=== PATIENT | female | born 1945 | race Native Hawaiian/Other Pacific Islander ===

== ENCOUNTER 2019-09-28 11:12 | Inpatient (IN) | payer OTHER, MEDICARE ==
[~2019-09-28] VITALS: Ht 170.2 cm; Wt 70.8 kg
--- NOTE | 2019-09-28 09:00 | NUR ---
ASSISTED P[T TO RESTROOM, HELD TO HELP STEADY PT, U/A COLLECTED AND SENT TO LAB. PT ASSISTED BACK TO BED.
--- NOTE | 2019-09-28 11:00 | NUR ---
RESTING QUIETLY IN BED AT THIS TIME, NAD NOTED, RESP EVEN AND UNLABORED.
[2019-09-28 14:53] LABS: PLATELET COUNT 211 K/uL (152-353)
--- NOTE | 2019-09-28 15:09 | NUR ---
Patient is a new Swing Bed Patient and was admitted by Dr. Bentley with weakness and no diet order and labs WBC, MCV, MCH all elevated and RBC depressed and other labs pending. 67" at 161.2 and is a 74 YOF. IBW for height = 135+/-10% (121 to 149 lbs.) and kcal x 25 = 1500, x 30 = 1800, x 35 = 2148, x 40 = 2455, protein needs x .8 to 1.5 = 49 to 92 grams and fluids for weight x 25 or 30 = 1800 to 2200 ml per day. BMI at 25.2 overweight. 119% IBW. Will meet with the PCP team for the Swing Beds.
[2019-09-28 15:19] LABS: POTASSIUM 3.5 mmol/L (3.6-5.2)
--- NOTE | 2019-09-28 16:00 | NUR ---
PATIENT NOTED WITH A SMALL RASH ON THE LEFT SIDE OF THE UPPER BUTTOCKS, NO PUSTULES, DRAINAGE OR FOUL ODOR NOTED. PATIENT DENIED ANY PAIN OR ITCHING IN THAT AREA.
--- NOTE | 2019-09-28 16:30 | NUR ---
Mrs. Salazar is a 74 year old white female admitted to the facility on 09-28-19 for short term therapy, Mrs. Salazar was admitted from [facility] she was transported by personal vehicle to this facility. Patient is found to have generalized weakness with gait imbalance, lightheadedness, headaches and new onset tremors. Mrs. Salazar requires 24-hour alf care, which as a practical matter can only be done on a inpatient basis because she lives alone and requires help with all adl's and none of her children are able to provide that care for her at this time. Aerodynamicist and discharge planners will continue to observe and assist with any medically related psychosocial needs prn, observe and assist with an
--- NOTE | 2019-09-28 19:30 | NUR ---
PT STATED ,"I'M HUNGRY" SNACKS PROVIDED AT BEDSIDE AT THIS TIME,PT A& O ,NAD NOTED, RESP EVEN AND UNLABORED,DRINKS OPENED PER STAFF AND SOUP AND SANDWICHES SET UP FOR PT.
[2019-09-28 20:00] VITALS: BP 139/52; TEMP 98.4
[2019-09-28 20:08] VITALS: BP 140/54; TEMP 98.1; Ht 170.2 cm; Wt 70.8 kg
--- NOTE | 2019-09-29 01:00 | NUR ---
RESTING QUEITLY IN BED, NAD NOTED, RESP EVEN AND UNLABORED AT THIS TIME.
--- NOTE | 2019-09-29 03:26 | NUR ---
ASSISTED PT UP OUT OF BED TO BATHROOM AND RETURNED TO BED AT THIS TIME ,NAD NOTED, RESP EVEN AND UNLABORED.
--- NOTE | 2019-09-29 05:03 | NUR ---
PT RESTING IN BED,NO C/O VOICED, NAD NOTED, RESP EVEN AND UNLABORED AT PRESENT.
[2019-09-29 08:00] VITALS: BP 148/56; TEMP 97.6
[2019-09-29 20:09] VITALS: BP 126/47; TEMP 98.7
[2019-09-30 08:00] VITALS: BP 132/54; TEMP 98.3
--- NOTE | 2019-09-30 16:00 | NUR ---
SIMA assmt. completed on Martin.
[2019-09-30 20:00] VITALS: BP 123/45; TEMP 98.8
[2019-10-01 08:00] VITALS: BP 130/43; TEMP 97.9
--- NOTE | 2019-10-01 08:15 | NUR ---
ON ROUNDING PATIENT NOTED IN THE BATHROOM IN HER WALKER. PATIENT WAS COUGHING UP SOMETHING AND SPITTING IT IN THE TRASH. PATIENT STATED SHE HAD A LITTLE CONGESTION. PATIENT THEN AMBULATED WITH WALKER OUT OF THE BATHROOM TO THE BED ON HER OWN WITHOUT ASSISTANCE. VITAL SIGNS TAKEN AT THIS TIME. 0920-PATIENT TAKEN TO PT AT THIS TIME. PATIENT USES THE WALKER TO AMBULATE. PATIENT RETURNED AROUND 0940. 1015- PATIENT TAKEN FOR MUSIC ACTIVITY AT THE [facility].
[2019-10-01 20:00] VITALS: BP 118/41; TEMP 98.5
--- NOTE | 2019-10-02 06:17 | NUR ---
10/02/2019 0620 RESTING HF NO C/O DURING THE NIGHT.CALL LIGHT WITHIN REACH.CC
[2019-10-02 08:00] VITALS: BP 133/39; TEMP 97.3
--- NOTE | 2019-10-02 11:25 | NUR ---
PER ORDER PATIENT TAKEN OFF O2 AT THIS TIME AND INSTRUCTED TO REMAIN OFF HER OXYGEN IN ATTEMPT TO WEAN OF O2 AT 2PM. PATIENT EDUCATED THAT IF SHE FELT SHORT OF BREATH TO CALL NURSES STATION FOR ASSISTANCE IMMEDIATELY PATIENT VOICED UNDERSTANDING. CURRENT SPO2 96%.
[2019-10-02 20:00] VITALS: BP 104/40; TEMP 97.2
[2019-10-03 08:00] VITALS: BP 100/61; BP 118/38; TEMP 98.5
--- NOTE | 2019-10-03 15:00 | NUR ---
WHILE HER DAUGHTER WAS VISITING PATIENT GOT IN THE SHOWER. PATIENT ABLE TO STAND UP FROM BEDSIDE CHAIR AND USE WALKER TO AMBULATE TO THE SHOWER. PATIENT IS ABLE TO SIT IN THE CHAIR AND WASH HERSELF WITHOUT ASSITANCE. PATIENT NOTED STANDING WITH WALKER BY HER SIDE AND SHE WAS DRYING OFF WITH TOWEL. PATIENT AMBULATED WITHOUT CLOTHES TO HER BEDSIDE CHAIR AND SHE SAT DOWN AND PUT HER UNDERWEAR ON AND THEN STOOD UP AND ADJUSTED THEM ON HER HIPS. PATIENT THEN REACHED FOR HER CLEAN PAJAMAS ON THE BED AND DRESSED HERSELF.
[2019-10-03 15:32] VITALS: BP 106/54
[2019-10-03 15:54] LABS: PLATELET COUNT 232 K/uL (152-353)
[2019-10-03 16:24] LABS: POTASSIUM 3.5 mmol/L (3.6-5.2)
[2019-10-03 20:00] VITALS: BP 133/55; TEMP 98.9
--- NOTE | 2019-10-04 05:20 | NUR ---
PT SWING BED STATUS. PT IN WITH WEAKNESS. PT HAS RESTED THIS SHIFT. PT WITH NO COMPLAINTS. UA COLLECTED AND SENT TO LAB.
[2019-10-04 05:46] LABS: PLATELET COUNT 227 K/uL (152-353)
[2019-10-04 08:06] VITALS: BP 164/55; TEMP 98.3
--- NOTE | 2019-10-04 16:43 | NUR ---
[facility] interview completed.
[2019-10-04 20:22] VITALS: BP 111/67; TEMP 98.6
[2019-10-05 08:00] VITALS: BP 155/56; TEMP 98.3
--- NOTE | 2019-10-05 15:55 | NUR ---
Janusz SPOKE WITH JAY IN LAB R/T LITHIUM LEVEL DRAWN ON ADMISSION AND SENT TO [facility]. PER [facility] SPECIMEN WASNT ANY GOOD .
--- NOTE | 2019-10-05 15:57 | NUR ---
1600 JAY FROM LAB CALLED AND SAID [facility] CALLED BACK AND SAID BLOOD WAS FOUND AND LEVEL RUNNING NOW AND WOULD HAVE RESULTS THIS EVENING
[2019-10-05 20:00] VITALS: BP 139/59; TEMP 98.6
[2019-10-06 08:00] VITALS: BP 166/49; TEMP 97.4
--- NOTE | 2019-10-06 09:55 | NUR ---
IN PATIENTS ROOM AT THIS TIME SHE IS SITTING UP IN THE BEDSIDE CHAIR. PATIENT STATED SHE GOT HER HAIR DONE THIS MORNING. MEDICATION LEVOTHYROXINE GIVEN NOW DUE TO PHARMACY RESTOCKING MEDICATION. PATIENT IS WATCHING TV, NO ACUTE DISTRESS NOTED.
--- NOTE | 2019-10-06 11:44 | NUR ---
Mrs. Salazar has difficulty opening milk cartons and cereal boxes, she needs set up help with theses items at meal times.
[2019-10-06 20:00] VITALS: BP 158/69; TEMP 98.6
--- NOTE | 2019-10-07 07:32 | NUR ---
UPON ENTERING PATIENTS ROOM THIS MORNING PATIENT NOTED STANDING PUTTING ON HER BRA WITHOUT ASSISTANCE WITH WALKER IN FRONT OF HER. WHILE DRESSING PATIENT STATED " I'M UP GETTING DRESSED", WHEN ASKING HER HOW WAS SHE FEELING THIS MORNING PATIENT STATED " I'M ALRIGHT, DON'T REALLY LIKE THERAPY THIS MORNING", PATIENT DENIED ANY ACUTE PAIN OTHER THAN SHE NOT RESTING WELL THROUGHOUT THE NIGHT STATING " I DIDN'T SLEEP MUCH". MORNING ASSESSMENT COMPLETED AND NOTIFIED PATIENT I WOULD COME BACK AND CHECK ON HER IN JUST A LITTLE BIT. PATIENT STATED " OK".
[2019-10-07 08:00] VITALS: BP 138/61; TEMP 98.5
--- NOTE | 2019-10-07 09:40 | NUR ---
ON ROUNDING PATIENT IS SITTING QUIETLY UP IN THE CHAIR. PATIENT STATED " I AM WAITING FOR THEM TO COME AND TAKE ME TO THERAPY SOME TIME TODAY", PATIENT WAS WATCHING TV. NO ACUTE DISTRESS WAS VOICED OR NOTED.
--- NOTE | 2019-10-07 12:05 | NUR ---
ON ROUNDING TO PATIENTS ROOM PATIENT WAS NOTED SITTING UP AT THE SIDE OF THE BED EATING LUNCH ([employer]) BROUGHT IN BY HER GRANDSON THIS AFTERNOON. PATIENT IS NOTED WITH MODERATE TREMORS SHE USES HER UTENSIL TO SCOOP UP HER FOOD. PATIENT HAS A HX OF PARKINSONS DISEASE AND MILD TREMORS NOTED ON ADMISSION BUT TODAY AFTER THERAPY TERMORS ARE MORE DISTINCT MAKING EATING SLIGHTLY MORE DIFFICULT, DAUGHTER WAS ASSISTING HER WITH ACTIVITY. DAUGHTER STATED SHE NOTED TREMORS WERE MORE NOTICEABLE TODAY WELL.
--- NOTE | 2019-10-07 13:10 | NUR ---
WHILE ROUNDING TO PATIENTS ROOM FOR MEDICATIONS, PATIENT WAS NOT IN THE ROOM SHE WAS AT THERAPY. PATIENTS DAUGHTER IS IN THE ROOM EATING LUNCH. NOTIFIED DAUGHTER I WOULD COME BACK WITH HER MEDICATIONS.
--- NOTE | 2019-10-07 14:15 | NUR ---
PATIENT IS BACK FROM THERAPY. MEDICATIONS GIVEN AT THIS TIME. PATIENT IS SITTING UP IN THE BEDSIDE CHAIR WATCHING TV. WHEN ASKING PATIENT HOW THERAPY WENT PATIENT STATED " THEY WORKED MY LEGS TODAY, THEY WERE JUST A KICKING". PATIENT GIVEN HER LITHIUM AND PATIENT CAN HOLD HER MEDICATIONS IN HER HANDS DUE TO HER TAKING EACH MEDICATION ONE BY ONE WITHOUT DIFFICULTY. WHEN HANDING HER THE QUESTRAN MIXED IN APPLEJUICE PATIENT NOTED WITH MODERATE TREMORS AND CUP SHAKING SHE TOOK HER DRINK HOLD STRAW WITH ONE HAND AND SIP SMALL AMOUNTS OF JUICE A LITTLE BIT AT A TIME. ASSESSING PATIENT WHILE DRINKING WHILE HOLDING THE STRAW PATIENT BUMPED STRAW SLIGHTLY HARD ON TEETH BECAUSE OF TREMORS, PATIENT GIVEN A NAPKING TO CLEAN HER MOUTH. DAUGHTER AT THE BEDSIDE.
[2019-10-07 20:00] VITALS: BP 123/60; TEMP 98.8
--- NOTE | 2019-10-08 02:02 | NUR ---
10/08/2019 0200 RESTING WITH EYES CLOSED RESP EVEN NONLABORED NAD NOTED.CALL LIGHT WITHIN REACH.CC
[2019-10-08 08:00] VITALS: BP 156/65; TEMP 97.9
[2019-10-08 19:57] VITALS: BP 135/66; TEMP 98.3
[2019-10-09 08:00] VITALS: BP 122/58; TEMP 97.6
[2019-10-09 20:00] VITALS: BP 129/47; TEMP 98.7
[2019-10-10 08:00] VITALS: BP 140/62; TEMP 98.2
--- NOTE | 2019-10-10 09:41 | NUR ---
PT VOICES C/O HAVING TREMORS OF THE BLE THIS MORNING. BLOOD SUGAR WAS CHECKED AND FOUND TO BE 89 AFTER EATING BREAKFAST. PATIENT TOOK PO MEDS WHOLE WITH NO DISTRESS NOTED. SITTING UP ON THE SIDE OF THE BED AT THIS TIME. NO ACUTE DISTRESS NOTED AND CALL LIGHT IS WITHIN REACH. WILL CONTINUE TO MONITOR.
--- NOTE | 2019-10-10 17:45 | NUR ---
NEW ORDER GIVEN BY TO INCREASE INDERAL FROM 60 MG ER DAILY TO INDERAL 40 MG TWICE A DAY. ORDER PLACED IN COMPUTER AT THIS TIME.
[2019-10-10 20:00] VITALS: BP 153/58; TEMP 98.5
[2019-10-11 08:00] VITALS: BP 173/80; TEMP 98.7
[2019-10-11 20:00] VITALS: BP 126/54; TEMP 98.7
[2019-10-12 08:00] VITALS: BP 143/74; TEMP 98.3
[2019-10-12 20:00] VITALS: BP 132/52; TEMP 98.5
--- NOTE | 2019-10-13 01:53 | NUR ---
10/13/2019 0150 PT OUT OF BED TO RESTROOM PT DROWSY GETTING OUT OF BED.ASSISTED PATIENT TO RESTROOM VOIDED 300ML YELLOW URINE.ASSISTED BACK TO BED DAUGHTER PRESENT IN ROOM.CC
--- NOTE | 2019-10-13 06:24 | NUR ---
10/13/2019 0625 RESTING IN BED WITH EYES CLOSED.NAD NOTED.
[2019-10-13 08:00] VITALS: BP 142/95; TEMP 98.4
[2019-10-13 20:00] VITALS: BP 143/56; TEMP 99
[2019-10-14 08:00] VITALS: BP 143/117; TEMP 97.4
--- NOTE | 2019-10-14 14:38 | NUR ---
[address] HUDDLESTON.
[2019-10-14 20:00] VITALS: BP 150/88; TEMP 99
[2019-10-15 08:00] VITALS: BP 139/62; TEMP 97.8
[2019-10-15 20:00] VITALS: BP 135/59; TEMP 98.7
[2019-10-16 08:00] VITALS: BP 151/71; TEMP 98.3
[2019-10-16 20:00] VITALS: BP 164/61; TEMP 98
[2019-10-17 08:00] VITALS: BP 157/46; TEMP 97.9
[2019-10-17 20:00] VITALS: BP 111/82; TEMP 98.3
--- NOTE | 2019-10-17 21:38 | NUR ---
10/17/2019 2100 PT GIVEN MEDICATION TOLERATED WELL.PT ENCOURAGED TO DRINK WATER SAID SHE IS TRYING TO DO BETTER ABOUT WATER.PT DRINKING PEPSI.CALL LIGHT WITHIN REACH.CC
--- NOTE | 2019-10-18 02:52 | NUR ---
10/18/2019 0250 CALLED TO ROOM PT SAID SHE MAY BE A L ITTLE HOT HEAT TURNED DOWN COVERS PULLED OFF AT THIS TIME.PT SAID SHE WAS ALRIGHT DOESNOT NEED ANYTHING.TOLD HER I WILL CHECK ON HER IN ALITTLE WHILE BUT TO CALL IF SHE NEEDS ANYTHING.PT VERBALIZED UNDERSTANDING.CC
[2019-10-18 09:31] VITALS: BP 158/50; TEMP 97.5
--- NOTE | 2019-10-18 10:30 | NUR ---
Mrs. Salazar was standing up alone ambulatiing to her chair unassisted when i entered her room. Her hands where trembling. Her daughter was in the room with her. I discussed with her and her daughter Mrs. Salazar poor appitite. She has had an eight pound weight loss since her swing bed admission of 09/28/19. She stated that she did not like the food that she was given and she did not like ensure. I then notified alondra pearl our registered dietitian for any suggustions she may have had. She reccomemded megace or remeron or a MVI with an appetite stimulant and to also add a supplement. I took this information to DR. Raza for revieuw. She reccomended remeron 15mg po every night. order was wrote faxed to pharmacy ch nurse notified of new order. I went back to Mrs. Salazar room explaind what was ordered and she and her daughter said no. They did not want anything that may effect her bipolar disorder. I explained that this med would help increase her appetite and make her rest better at night. Both patient and daughter said no again. They said they where fine with everything the way it was and did not want anything added to her medications. Order was cancelled MD nurse and pharmacy notified.
[2019-10-18 20:17] VITALS: BP 138/57; TEMP 98.2
[2019-10-19 08:00] VITALS: BP 118/59; TEMP 98.2
[2019-10-19 20:00] VITALS: BP 127/49; TEMP 99
--- NOTE | 2019-10-20 05:25 | NUR ---
Per Avery Lo, nurse with Swing Bed Program yancy has lost 8 lbs. in the last 8 lbs. in the last 20 days. I ask Avery Lo for MD to add a MVI and appetite stimulant. On a Regular diet. Recommend: 1-Add MVI 1 po q day 2-Add and appetite stimulant 3-Add a supplement between meals or cookies and a drink, whatever the patient will eat.
[2019-10-20 08:00] VITALS: BP 154/65; TEMP 97.9
[2019-10-20 20:00] VITALS: BP 136/57; TEMP 97.7
[2019-10-21 08:00] VITALS: BP 147/66; TEMP 98.4
[2019-10-21 20:00] VITALS: BP 133/54; TEMP 98.4
--- NOTE | 2019-10-22 05:00 | NUR ---
10/22/2019 OUT OF BED TO RESTROOM WITH WALKER TOLERATED WELL.MAD NOTED.CC
[2019-10-22 08:00] VITALS: BP 160/65; TEMP 97.6
--- NOTE | 2019-10-22 09:14 | NUR ---
PT UP IN SHOWER WITH TAMAR GRIFFITHS ASSISTING HER. PATIENT'S UPPER EXTREMITIES ARE VISIBLY TREMLING. PHYSICAL THERAPY IS IN ROOM AT THIS TIME TO GET PATIENT FOR THERAPY. PT REPORTED TO THIS NURSE THAT PATIENT STILL GETS VERY WEAK AFTER ABOUT 20 MINUTES OF THERAPY, AND YESTERDAY SHE APPEARED TO BE VERY DROWSY WHILE AT THERAPY. PATEINT TOOK MEDS WHOLE WITH NO DISTRESS. NO ACUTE DISTRESS NOTED AT THIS TIME. CALL LIGHT WITHIN REACH AND PT AND DAUGHTER IS AT BEDSIDE.
--- NOTE | 2019-10-22 16:05 | NUR ---
PATIENT'S DAUGHTER, MADIE BOLIVAR REQUESTED A COPY OF PATIENT'S MORNING LABS. REQUESTEDFOR MEDICAL RECORDS CONSENT WAS SIGNED. PATIENT'S GRANDDAUGHTER STATED,"THAT PATIENT'S PHYCHOLOGIST'S DR GASTELUM REQUESTED TO SEE LABS D/T ELEVATED LITHEM LEVEL AND WHAT ACTION TO TAKE. PATIENT WAS SCHEDULED TO BE DISCHARGED TOMORROW, BUT IS PENDING D/T ELEVATED LITHEM LEVEL.
[2019-10-22 20:00] VITALS: BP 114/69; TEMP 98.1
[2019-10-23 08:20] VITALS: BP 149/76; TEMP 98.4
--- NOTE | 2019-10-23 18:31 | NUR ---
PATIENT HAS BEEN SITTING UP IN CHAIR MOST OF THIS SHIFT. AMBULATED IN THE HALLWAY WITH DAUGHTER. PATIENT WAS CARRIED MULTIPLE CUPS OF ICE AND SLICED CHRISTIE FOR PATIEN TO INCREASE PO INTAKE, PER DR GASTELUM (PATIENT'S PSY MD) D/T ELEVATED LITHEM LEVEL. DOSES OF LITHEM WAS HER ON 10/22/2019, AND 10/23/2019, AND IS SCHEDULED TO BE REPEATED IN THE MORNING. PATIENT AND PATIENT'S DAUGHTER AWARE. PATIENT TOOK MED WHOLE TODAY WITH NO DISTRESS NOTED. CALL LIGHT WITHIN REACH. WILL CONTINUE TO MONITOR.
[2019-10-23 20:00] VITALS: BP 163/78; TEMP 98.3
[2019-10-24 08:00] VITALS: BP 150/78; TEMP 97.8
--- NOTE | 2019-10-24 10:00 | NUR ---
PATIENT SITTING UP IN CHAIR AND DRESSED. FRESH ICE WATER WITH CHRISTIE WAS BROUGHT TO PATIENT. PATIENT WAS ENCOURAGED TO INCREASE HER PO INTAKE BY PATIENT'S PSY MED, DR SOLIS, D/T PATIENT'S ELEVATED LITHEM LEVEL. TODAYS DOSE OF LITHEM WAS NOT GIVEN, AND BLOOD SPECIMEN WAS DRAWED, BUT HAS TO BE SENT OUT FOR PROCESSING, AND IS EXPECTED TO BE BACK TOMORROW AROUND LUNCH, PER LAB TECHS. PATIENT TOOK MEDS WHOLE, WITH NO DISTRESS NOTED. TREMORS OF BUE ARE STILL VISIBLE. PATIENT IS ABLE TO AMBULATE IN HALLWAY WITH SUPERVISION. NO ACUTE DISTRESS NOTED AND CALL LIGHT WITHIN REACH. WILL CONTINUE TO MONITOR.
--- NOTE | 2019-10-24 11:00 | NUR ---
PT DISCHARGED TO HOME. PT AND DAUGHTER INSTRUCTED TO CONTACT THIS FACILITY FOR RESULTS OF LITHEM LEVEL THAT WAS DRAWN THIS MORNING. RESULTS ARE TO BE AVAILABLE AFTER LUNCH TOMORROW. PATIENT'S DAUGHTER VOICED UNDERSTANDING. PATIENT DECLINED W/C AND LEFT FACILITY AMBULATING. PATIENT'S DAUGHTER WAS GIVEN PATIENT'S HOME MEDS. PATIENT INSTRUCTED TO FOLLOWUP WITH TOMORROW WITH PATIENT'S PSY MD, DR GASTELUM WITH RESULTS OF TOMORROWS LITHEM LEVEL. PATIENT ALSO INSTRUCTED TO CONTINUE DRINKING LEMON WATER, PER DR GASTELUM, REPORTED BY PATIENT'S DAUGHTER, THAT SPOKE WITH DR GASTELUM'S ON THE PHONE. MO ACUTE DISTRESS NOTED TO PATIENT.
== END 2019-10-24 19:37 | disposition home or self-care (01) | DRG 948 ==
LOC: MED/SURG 11:12
PROVIDERS: Family Medicine; ADMIT Internal Medicine
DX: R53.1 Weakness (principal); N17.9 Acute kidney failure, unspecified; E86.0 Dehydration; R25.1 Tremor, unspecified; I10 Essential (primary) hypertension; J44.9 Chronic obstructive pulmonary disease, unspecified; K21.9 Gastro-esophageal reflux disease without esophagitis
CPT/HCPCS: 36415; 80053; 80178; 81000; 84443; 85027; 87081; 87088; 94760; J0696

== ENCOUNTER 2020-08-23 14:01 | Inpatient (IN) | payer OTHER, MEDICARE ==
[2020-08-28 08:11] LABS: PLATELET COUNT 385 K/uL (152-353)
[2020-08-28 08:16] LABS: POTASSIUM 4.2 mmol/L (3.6-5.2)
[2020-09-06 08:19] LABS: POTASSIUM 4.3 mmol/L (3.6-5.2)
== END 2020-09-08 09:46 | disposition still patient (30) ==
LOC: PAVC 14:01
PROVIDERS: ADMIT Internal Medicine; ATTEND Internal Medicine
DX: N39.0 Urinary tract infection, site not specified (principal); B95.2 Enterococcus as the cause of diseases classified elsewhere; R26.89 Other abnormalities of gait and mobility; M62.81 Muscle weakness (generalized); Z74.1 Need for assistance with personal care; R48.8 Other symbolic dysfunctions; J44.9 Chronic obstructive pulmonary disease, unspecified; I27.20 Pulmonary hypertension, unspecified; I51.7 Cardiomegaly
CPT/HCPCS: 80053; 80178; 82607; 83735; 84443; 85027; 87081

== ENCOUNTER 2020-09-08 09:52 | Inpatient (IN) | payer OTHER, MEDICARE ==
[2020-09-14 12:44] LABS: PLATELET COUNT 204 K/uL (152-353)
== END 2020-09-29 09:30 | disposition home or self-care (01) ==
LOC: PAVC 09:52
PROVIDERS: ADMIT Internal Medicine; ATTEND Internal Medicine
DX: N39.0 Urinary tract infection, site not specified (principal); B95.2 Enterococcus as the cause of diseases classified elsewhere; R26.89 Other abnormalities of gait and mobility; M62.81 Muscle weakness (generalized); Z74.1 Need for assistance with personal care; R48.8 Other symbolic dysfunctions; J44.9 Chronic obstructive pulmonary disease, unspecified; G92 Toxic encephalopathy; I27.20 Pulmonary hypertension, unspecified; I51.7 Cardiomegaly
CPT/HCPCS: 85027

== ENCOUNTER 2021-12-10 09:40 | Inpatient (IN) | payer OTHER, MEDICARE ==
[2021-12-10] VITALS (10 sets, daily range): BP systolic 129–176; BP diastolic 42–62; TEMP 97.5–99.4; Ht 172.7 cm; Wt 69.9 kg
[~2021-12-10] VITALS: Ht 172.7 cm; Wt 69.9 kg
[2021-12-10 11:14] LABS: PLATELET COUNT 215 K/uL (152-353)
[2021-12-10 11:22] LABS: POTASSIUM 3.9 mmol/L (3.6-5.2)
[2021-12-10] MEDS ORDERED: EUTHYROX137 MCG PO (16:24)
[2021-12-10] MEDS ORDERED: NEURONTIN 100M100 MG PO (16:26)
[2021-12-10] MEDS ORDERED: LITHIUM CARB300 MG PO (16:26)
[2021-12-10] MEDS ORDERED: ROSUVASTATIN CA20 MG PO (16:27)
[2021-12-10] MEDS ORDERED: PROPRANOLOL HYD60 MG PO (16:27)
[2021-12-10] MEDS ORDERED: HYD PO (16:28)
[2021-12-10] MEDS ORDERED: TELMISARTAN PO (16:28)
[2021-12-10] MEDS ORDERED: LAMOTRIGINE25 MG PO (16:28)
[2021-12-10] MEDS ORDERED: BROMFED DM PO (16:29)
[2021-12-11 03:39] VITALS: BP 129/51; TEMP 99.2
[2021-12-11 05:23] LABS: PLATELET COUNT 234 K/uL (152-353)
[2021-12-11 05:47] LABS: POTASSIUM 3.4 mmol/L (3.6-5.2)
[2021-12-11 08:00] VITALS: BP 157/55; TEMP 97.9
[2021-12-11 12:00] VITALS: BP 138/51; TEMP 98.1
[2021-12-11 16:00] VITALS: BP 129/53; TEMP 98.4
[2021-12-11 20:08] VITALS: BP 165/60; TEMP 98.5
[2021-12-11 23:45] VITALS: BP 166/52; TEMP 98.3
[2021-12-12 03:47] VITALS: BP 162/53; TEMP 97.7
[2021-12-12 05:27] LABS: PLATELET COUNT 216 K/uL (152-353)
[2021-12-12 05:36] LABS: POTASSIUM 3.5 mmol/L (3.6-5.2)
[2021-12-12 08:00] VITALS: BP 138/69; TEMP 98.4
[2021-12-12 12:00] VITALS: BP 132/64; TEMP 97.3
[2021-12-12 16:00] VITALS: BP 141/52; TEMP 97.4
[2021-12-12 20:00] VITALS: BP 149/71; TEMP 98.3
[2021-12-13] VITALS: BP 154/54; TEMP 98.1
[2021-12-13 04:00] VITALS: BP 148/52; TEMP 97.9
[2021-12-13 05:28] LABS: PLATELET COUNT 227 K/uL (152-353)
[2021-12-13 05:55] LABS: POTASSIUM 3.5 mmol/L (3.6-5.2)
[2021-12-13 07:26] VITALS: BP 180/67; TEMP 98.2
[2021-12-13] MEDS ORDERED: ONDANSETRON4 MG/2 M1 IV (09:39)
[2021-12-13] MEDS ORDERED: ACET-206 PO (09:40)
[2021-12-13 12:00] VITALS: BP 136/44; TEMP 98.4
[2021-12-14] MEDS ORDERED: TYLENOL325 MG PO (12:50)
[2021-12-14] MEDS ORDERED: INDERAL LA60 MG PO (12:58)
== END 2021-12-13 14:11 | disposition swing bed (61) | DRG 551 ==
LOC: ED 09:40 → MED/SURG 13:10
PROVIDERS: Emergency Medicine; Internal Medicine; ADMIT Internal Medicine Endocrinology, Diabetes & Metabolism; ATTEND Internal Medicine Endocrinology, Diabetes & Metabolism
DX: S32.018A Other fracture of first lumbar vertebra, initial encounter for closed fracture (principal); G92.8 Other toxic encephalopathy; N17.8 Other acute kidney failure; F31.89 Other bipolar disorder; S32.048A Other fracture of fourth lumbar vertebra, initial encounter for closed fracture; W07.XXXA Fall from chair, initial encounter; Y92.89 Other specified places as the place of occurrence of the external cause; D72.828 Other elevated white blood cell count; Z86.73 Personal history of transient ischemic attack (TIA), and cerebral infarction without residual deficits; E03.8 Other specified hypothyroidism; E78.49 Other hyperlipidemia; E86.0 Dehydration; R47.81 Slurred speech; R53.1 Weakness; R26.89 Other abnormalities of gait and mobility; I10 Essential (primary) hypertension
CPT/HCPCS: 36415; 80048; 80053; 81000; 82607; 82746; 85027; 87635; 99283; A9576; J1650; J2060; J2270; J3490; U0003

== ENCOUNTER 2021-12-13 14:11 | Inpatient (IN) | payer OTHER, MEDICARE ==
[~2021-12-13] VITALS: Ht 172.7 cm; Wt 67.2 kg
[~2021-12-13 14:11] MED LIST: ACET-206 PO; BROMFED DM PO; EUTHYROX137 MCG PO; HYD PO; LAMOTRIGINE25 MG PO; LITHIUM CARB300 MG PO; NEURONTIN 100M100 MG PO; ONDANSETRON4 MG/2 M1 IV; PROPRANOLOL HYD60 MG PO; ROSUVASTATIN CA20 MG PO; TELMISARTAN PO
[2021-12-13 16:40] VITALS: BP 136/44; TEMP 98.4; Ht 172.7 cm; Wt 67.2 kg
[2021-12-13 20:00] VITALS: BP 153/51; TEMP 98.5
[2021-12-14 08:00] VITALS: BP 167/53; BP 167/58; TEMP 98.1
[2021-12-14 09:04] LABS: PLATELET COUNT 216 K/uL (152-353)
[2021-12-14 09:56] LABS: POTASSIUM 3.5 mmol/L (3.6-5.2)
[2021-12-14] MEDS ORDERED: TYLENOL325 MG PO (12:50)
[2021-12-14] MEDS ORDERED: INDERAL LA60 MG PO (12:58)
[2021-12-14 20:09] VITALS: BP 141/59; TEMP 99.3
[2021-12-15 08:00] VITALS: BP 120/48; TEMP 97.7
[2021-12-15 20:04] VITALS: BP 135/45; TEMP 98.6
[2021-12-16 07:58] VITALS: BP 107/43; TEMP 97.7
[2021-12-16 19:53] VITALS: BP 112/41; TEMP 98.1
[2021-12-17 05:34] LABS: PLATELET COUNT 218 K/uL (152-353)
[2021-12-17 05:43] LABS: POTASSIUM 3.4 mmol/L (3.6-5.2)
[2021-12-17 08:00] VITALS: BP 113/40; TEMP 98.1
[2021-12-17 20:00] VITALS: BP 111/47; TEMP 98.1
[2021-12-18 08:00] VITALS: BP 119/49; TEMP 98.3
[2021-12-18 20:00] VITALS: BP 134/45; TEMP 98.3
[2021-12-19 08:00] VITALS: BP 92/40; TEMP 98.1
[2021-12-19 19:54] VITALS: BP 131/59; TEMP 99
[2021-12-20 08:00] VITALS: BP 114/43; TEMP 98.4
[2021-12-20 19:57] VITALS: BP 121/44; TEMP 99
[2021-12-21 20:00] VITALS: BP 115/42; TEMP 98.2
[2021-12-22 20:00] VITALS: BP 130/43; TEMP 98.2
[2021-12-23 20:00] VITALS: BP 123/68; TEMP 97.9
[2021-12-24 20:00] VITALS: BP 116/50; TEMP 98
[2021-12-25 20:15] VITALS: BP 119/45; TEMP 98.5
[2021-12-26 20:00] VITALS: BP 114/45; TEMP 97.8
[2021-12-27 08:00] VITALS: BP 100/43; TEMP 97.9
[2021-12-27 20:00] VITALS: BP 119/41; TEMP 97.9
[2021-12-28 08:00] VITALS: BP 125/65; TEMP 97.8
== END 2021-12-28 10:17 | disposition home health service (06) | DRG 559 ==
LOC: MED/SURG 14:11
PROVIDERS: ADMIT Internal Medicine; ATTEND Internal Medicine
DX: S32.010D Wedge compression fracture of first lumbar vertebra, subsequent encounter for fracture with routine healing (principal); S32.040D Wedge compression fracture of fourth lumbar vertebra, subsequent encounter for fracture with routine healing; D72.829 Elevated white blood cell count, unspecified; G92.9 Unspecified toxic encephalopathy; M62.81 Muscle weakness (generalized); R26.2 Difficulty in walking, not elsewhere classified; R26.81 Unsteadiness on feet; Z74.1 Need for assistance with personal care; R47.01 Aphasia; F80.1 Expressive language disorder; E78.5 Hyperlipidemia, unspecified; F31.9 Bipolar disorder, unspecified; I10 Essential (primary) hypertension
CPT/HCPCS: 36415; 80053; 85027; 87081

== ENCOUNTER 2022-01-10 10:15 | Inpatient (IN) | payer OTHER, MEDICARE ==
[~2022-01-10] VITALS: Ht 175.3 cm; Wt 68.7 kg
[~2022-01-10 10:15] MED LIST changes: +INDERAL LA60 MG PO; +TYLENOL325 MG PO
[2022-01-10 11:03] VITALS: BP 125/46; TEMP 98.1; BMI 22.0
[2022-01-10 12:54] LABS: POTASSIUM 3.7 mmol/L (3.6-5.2)
[2022-01-10 13:18] LABS: PLATELET COUNT 210 K/uL (152-353)
[2022-01-10] MEDS ORDERED: ONDA4TAB3 PO (13:23)
[2022-01-10] MEDS ORDERED: ASPIRIN/ENTERIC81 MG PO (13:23)
[2022-01-10 16:00] VITALS: BP 108/45; TEMP 98
[2022-01-10 20:00] VITALS: BP 104/50; TEMP 98.5
[2022-01-11 08:00] VITALS: BP 104/34; TEMP 98.1
[2022-01-11 12:00] VITALS: BP 96/32
[2022-01-11 19:49] VITALS: BP 119/59; TEMP 98.8
[2022-01-12 08:00] VITALS: BP 112/51; TEMP 97.5
[2022-01-12 20:09] VITALS: BP 141/47; TEMP 97.9
[2022-01-13 08:00] VITALS: BP 105/46; TEMP 98.4
[2022-01-13 20:01] VITALS: BP 128/66; TEMP 98.3
[2022-01-14 08:00] VITALS: BP 120/44; TEMP 97.9
[2022-01-14 20:00] VITALS: BP 109/39; TEMP 97.9
[2022-01-15 08:00] VITALS: BP 101/37; TEMP 98.1
[2022-01-15 20:00] VITALS: BP 139/58; TEMP 97.8
[2022-01-16 08:00] VITALS: BP 99/33; TEMP 97.6
[2022-01-16 09:14] LABS: PLATELET COUNT 209 K/uL (152-353)
[2022-01-16 09:33] LABS: POTASSIUM 4.1 mmol/L (3.6-5.2)
[2022-01-16 20:02] VITALS: BP 98/35; TEMP 97.8
[2022-01-17 08:30] VITALS: BP 119/41; TEMP 97.5
[2022-01-17 19:51] VITALS: BP 140/64; TEMP 98.2
[2022-01-18 08:00] VITALS: BP 146/58; TEMP 98.1
[2022-01-18 20:00] VITALS: BP 141/46; TEMP 98.5
[2022-01-18 22:03] VITALS: BP 123/68; TEMP 98.1; Ht 175.3 cm; Wt 68.7 kg
[2022-01-19 08:00] VITALS: BP 123/42; TEMP 98.1
[2022-01-19 20:00] VITALS: BP 126/51; TEMP 98.1
[2022-01-20 08:00] VITALS: BP 136/54; TEMP 98.3
[2022-01-20 20:00] VITALS: BP 137/55; TEMP 97.8
[2022-01-21 08:21] VITALS: BP 149/54; TEMP 97.7
[2022-01-21 20:36] VITALS: BP 127/52; TEMP 98.2
[2022-01-22 07:59] VITALS: BP 133/49; TEMP 97.3
[2022-01-22 09:33] LABS: POTASSIUM 4.2 mmol/L (3.6-5.2)
[2022-01-22 19:44] VITALS: BP 126/39; TEMP 97.7
[2022-01-23 08:00] VITALS: BP 142/49; TEMP 98.3
[2022-01-23 20:00] VITALS: BP 112/65; TEMP 97.9
[2022-01-24 08:00] VITALS: BP 135/43; TEMP 98.6
[2022-01-24 20:00] VITALS: BP 121/44; TEMP 98.1
[2022-01-25 07:41] VITALS: BP 110/4; TEMP 97.6
[2022-01-25 19:42] VITALS: BP 142/62; TEMP 98.3
[2022-01-26 08:40] VITALS: BP 135/78; TEMP 97.9
[2022-01-26 20:09] VITALS: BP 145/61; TEMP 98.1
[2022-01-27 07:57] VITALS: BP 109/42; TEMP 97.6
[2022-01-27] MEDS ORDERED: LAMO100T PO (17:46)
[2022-01-27] MEDS ORDERED: LITH300C3 PO (17:47)
[2022-01-27] MEDS ORDERED: LOSA50TA PO (17:49)
[2022-01-27 20:12] VITALS: BP 132/55; TEMP 97.8
[2022-01-28 08:00] VITALS: BP 125/56; TEMP 97.6
== END 2022-01-28 11:41 | disposition home or self-care (01) | DRG 561 ==
LOC: MED/SURG 10:15
PROVIDERS: Internal Medicine; ADMIT Internal Medicine; ATTEND Internal Medicine
DX: S32.010D Wedge compression fracture of first lumbar vertebra, subsequent encounter for fracture with routine healing (principal); S32.040D Wedge compression fracture of fourth lumbar vertebra, subsequent encounter for fracture with routine healing; Z51.81 Encounter for therapeutic drug level monitoring; E78.5 Hyperlipidemia, unspecified; R26.81 Unsteadiness on feet; Z91.81 History of falling; M62.81 Muscle weakness (generalized); R26.2 Difficulty in walking, not elsewhere classified; Z74.1 Need for assistance with personal care; R48.8 Other symbolic dysfunctions; F31.9 Bipolar disorder, unspecified; I10 Essential (primary) hypertension
CPT/HCPCS: 80053; 80178; 81000; 83735; 84439; 84443; 85027; 87081; 87635; 93005; U0003